=== PATIENT | male | born 1950 | race Two or more races ===

== ENCOUNTER 2019-11-17 12:42 | Emergency (ER) | payer OTHER ==
[~2019-11-17] VITALS: Ht 167.6 cm; Wt 86.2 kg
[2019-11-17] MEDS ORDERED: SIMVASTATIN80 MG (12:51)
== END 2019-11-17 16:47 | disposition home or self-care (01) ==
LOC: ER 12:42
DX: N20.2 Calculus of kidney with calculus of ureter (principal); R10.11 Right upper quadrant pain; R10.31 Right lower quadrant pain

== ENCOUNTER 2024-11-15 13:34 | Emergency (ER) | payer OTHER ==
[~2024-11-15] VITALS: Ht 167.6 cm; Wt 83.0 kg
[~2024-11-15 13:34] MED LIST: SIMVASTATIN80 MG
[2024-11-15] MEDS ORDERED: 0.9 % SODIUM CHLORIDE 500 ML IV ONE (15:00)
[2024-11-15 16:55] LABS: BASO % 0.2 % (0.1-1.2); EOS # 0.14 (0.04-0.54); EOS % 0.8 % (0.7-7.0); LYMPH # 3.87 (1.18-3.74); LYMPH % 21.4 % (19.3-53.1); MEAN CORPUSCULAR HEMOGLOBIN 31.3 pg (25.6-32.2); MONO # 1.02 (0.24-0.82); MONO % 5.6 % (4.7-12.5); NEUT # 12.98 (1.56-6.13); NEUT % 71.7 % (34.0-71.1); PLATELET COUNT 272 K/uL (163-369); RED BLOOD COUNT 2.68 M/uL (4.63-6.08); RED CELL DISTRIBUTION WIDTH 14.3 % (11.6-14.4)
[2024-11-15 16:59] LABS: HEMATOCRIT 25.8 % (40.1-51.0); HEMOGLOBIN 8.4 g/dL (13.7-17.5)
[2024-11-15 17:11] LABS: PARTIAL THROMBOPLASTIN TIME 21.3 SECONDS (22.0-34.0); PROTHROMBIN TIME 10.9 SECONDS (9.0-11.5)
[2024-11-15 17:16] LABS: ALBUMIN 3.6 gm/dL (3.4-5.0); BILIRUBIN TOTAL 0.31 mg/dL (0.3-1.2); CALCIUM 8.7 mg/dL (8.5-10.1); CREATININE SERUM 0.96 mg/dL (0.70-1.30); GFR 76.15; GLOBULINA 3.4 G/DL (2.4-3.5); POTASSIUM 3.95 mEq/L (3.5-5.1)
[2024-11-15] MEDS ORDERED: CEFTRIAXONE SODIUM 2,000 MG VIAL ONE (18:57)
[2024-11-15] MEDS ORDERED: CEFTRIAXONE SODIUM 2,000 MG VIAL IV ONE (19:00)
[2024-11-15] MEDS ORDERED: FUROsemide 20 MG/2 ML VIAL IV SCH (19:30)
[2024-11-16] MEDS ORDERED: FUROsemide 20 MG/2 ML VIAL ONE (10:11)
== END 2024-11-16 11:29 | disposition designated cancer center or children's hospital (05) ==
LOC: ER 14:59
PROVIDERS: General Practice
DX: J33.9 Nasal polyp, unspecified (principal); R04.0 Epistaxis; I10 Essential (primary) hypertension
CPT/HCPCS: 36415; 36430; 70487; 96365; 96366; 99285; J0696; J3490; J7030; Q9965